=== PATIENT | female | born 1970 | race Caucasian/White ===

== ENCOUNTER 2022-08-25 09:58 | Day surgery (SDC) | payer BC ==
[2022-08-25] MEDS ORDERED: Lidocaine 2% 5 ML SDV ONE (10:39)
[2022-08-25] MEDS ORDERED: fentaNYL 100 MCG/2 ML SDV ONE (10:39)
[2022-08-25] MEDS ORDERED: Propofol 200 MG/20 ML SDV ONE ×2 (10:39→12:21)
[2022-08-25] MEDS ORDERED: Lactated Ringers 1,000 ML IV SCH (10:45)
== END 2022-08-25 13:23 | disposition home or self-care (01) ==
LOC: MW.SDS 09:58 → MERGE 08-27 09:00
PROVIDERS: ATTEND Surgery
DX: Z12.11 Encounter for screening for malignant neoplasm of colon (principal); D12.2 Benign neoplasm of ascending colon; K57.30 Diverticulosis of large intestine without perforation or abscess without bleeding; I10 Essential (primary) hypertension; M19.90 Unspecified osteoarthritis, unspecified site; J30.9 Allergic rhinitis, unspecified; F41.9 Anxiety disorder, unspecified; F32.A Depression, unspecified; E66.9 Obesity, unspecified; Z88.6 Allergy status to analgesic agent; Z88.8 Allergy status to other drugs, medicaments and biological substances; Z91.040 Latex allergy status; Z98.890 Other specified postprocedural states; Z90.710 Acquired absence of both cervix and uterus; Z79.899 Other long term (current) drug therapy
CPT/HCPCS: 45380; J2704; J3010; J7120

== ENCOUNTER 2022-11-01 06:03 | Emergency (ER) | payer BC ==
[2022-11-01] MEDS ORDERED: Lactated Ringers 1,000 ML IV STA (06:40)
[2022-11-01] MEDS ORDERED: Ketorolac 30 MG/ML SDV IVPUSH ONE (06:40)
[2022-11-01] MEDS ORDERED: Morphine 4 MG/ML Syringe IVPUSH STA (06:51)
[2022-11-01] MEDS ORDERED: Famotidine 20 MG Tab PO ONE (06:52)
[2022-11-01 06:57] LABS: CARBON DIOXIDE,CO2 26.4 mmol/L (21.0-32.0); POTASSIUM,K 3.8 mmol/L (3.5-5.1)
== END 2022-11-01 08:37 | disposition home or self-care (01) ==
LOC: MW.ED 06:03
DX: R10.12 Left upper quadrant pain (principal); G89.29 Other chronic pain; I10 Essential (primary) hypertension; M19.90 Unspecified osteoarthritis, unspecified site; E66.9 Obesity, unspecified; Z68.33 Body mass index [BMI] 33.0-33.9, adult; Z88.6 Allergy status to analgesic agent; Z88.8 Allergy status to other drugs, medicaments and biological substances; Z91.040 Latex allergy status; Z91.048 Other nonmedicinal substance allergy status; Z79.899 Other long term (current) drug therapy
CPT/HCPCS: 36415; 74176; 80053; 81001; 81025; 83690; 85025; 96361; 96374; 96375; 99284; A9270; J1885; J2270; J7120